=== PATIENT | female | born 1960 | race Caucasian/White ===

== ENCOUNTER → 2016-11-15 | Outpatient (CLI) | payer BC ==
--- NOTE | 2016-11-15 10:51 | REPMRS ---
Patient History The patient states she had a clinical breast exam in 11/2016. Patient is postmenopausal and has history of other cancer at age 54. Family history of breast cancer in mother at age 30. Taking estrogen for 13 years. Digital Woman Screen Mammo: November 15, 2016 - Exam #: [id number] Bilateral CC and MLO view(s) were taken. Technologist: Marian Ga, Technologist Prior study comparison: October 11, 2015, digital woman screen mammo performed at [facility]. October 07, 2014, digital woman screen mammo performed at [facility]. August 18, 2013, left breast digital mammo diagnostic unilateral, performed at [facility]. July 10, 2012, digital mammo diagnostic bilateral, performed at [facility]. FINDINGS: There are scattered fibroglandular densities. There has been no change in the appearance of the mammogram from the prior studies. There is a mild amount of scattered fibroglandular density which is fairly symmetric. There is no interval development of dominant mass, architectural distortion, or clustered microcalcification suggestive of malignancy. ASSESSMENT: BI-RADS/ACR category 1 mammogram. Negative. Recommendation Routine screening mammogram in 1 year (for women over age 40). This mammogram was interpreted with the aid of an FDA-approved computer-aided dectection system. Electronically Signed By: Daniel Chen MD 11/15/16 [id number]
== END ==
LOC: M WHC 09:37
PROVIDERS: ATTEND Nurse Practitioner Family
DX: Z12.31 Encounter for screening mammogram for malignant neoplasm of breast (principal)

== ENCOUNTER → 2017-08-16 | Outpatient (REF) | payer BC ==
[2017-08-16 12:55] LABS: EOS # 0.2 10^3/uL (0.0-0.50); EOS % 3.8 % (0.0-3.0); IMMATURE GRANULOCYTE % 0.2 % (0-0); LYMPH # 1.8 10^3/uL (1.5-4.5); LYMPH % 42.1 % (24.0-44.0); MEAN CORPUSCULAR HEMOGLOBIN 31.4 pg (27.0-33.0); MEAN CORPUSCULAR HGB CONC 32.6 g/dl (32.0-36.5); MEAN CORPUSCULAR VOLUME 96.4 fl (80.0-96.0); MONO # 0.3 10^3/uL (0.0-0.8); MONO % 6.7 % (0.0-5.0); NEUTROPHILS # 1.9 10^3/uL (1.8-7.7); NEUTROPHILS % 46.2 % (36.0-66.0); PLATELET COUNT, AUTOMATED 252 10^3/uL (150-450); RED CELL DISTRIBUTION WIDTH 11.9 % (11.5-14.5); WHITE BLOOD COUNT 4.2 10^3/uL (4.0-10.0)
[2017-08-16 13:06] LABS: ALBUMIN 3.3 GM/DL (3.2-5.2); ALBUMIN/GLOBULIN RATIO 0.92 (1.00-1.93); ALKALINE PHOSPHATASE 97 U/L (45-117); ALT/SGPT 23 U/L (12-78); ANION GAP 2 MEQ/L (8-16); AST/SGOT 14 U/L (15-37); BILIRUBIN,TOTAL 0.3 MG/DL (0.2-1.0); BLOOD UREA NITROGEN 16 MG/DL (7-18); CALCIUM LEVEL 8.3 MG/DL (8.5-10.1); CARBON DIOXIDE LEVEL 33 MEQ/L (21-32); CHLORIDE LEVEL 103 MEQ/L (98-107); CHOLESTEROL LEVEL 231 MG/DL (<200); CREATININE FOR GFR 0.78 MG/DL (0.55-1.02); GLOMERULAR FILTRATION RATE > 60.0 (>51); GLUCOSE, FASTING 81 MG/DL (70-105); POTASSIUM SERUM 3.9 MEQ/L (3.5-5.1); SODIUM LEVEL 138 MEQ/L (136-145); TOTAL PROTEIN 6.9 GM/DL (6.4-8.2); TRIGLYCERIDES LEVEL 162 MG/DL (<150)
== END ==
LOC: M LABDRAW1 10:04
PROVIDERS: ATTEND Emergency Medicine
DX: R03.0 Elevated blood-pressure reading, without diagnosis of hypertension (principal)

== ENCOUNTER → 2018-03-03 | Outpatient (CLI) | payer BC | LOC: M WHC 13:54 | DX: Z12.31 Encounter for screening mammogram for malignant neoplasm of breast (principal); R92.8 Other abnormal and inconclusive findings on diagnostic imaging of breast; Z78.0 Asymptomatic menopausal state; Z80.3 Family history of malignant neoplasm of breast; Z79.890 Hormone replacement therapy | CPT/HCPCS: 77067 ==

== ENCOUNTER → 2018-04-07 | Outpatient (REF) | payer BC ==
[2018-04-07 15:16] LABS: ALBUMIN 3.4 GM/DL (3.2-5.2); ALBUMIN/GLOBULIN RATIO 1.06 (1.00-1.93); ALKALINE PHOSPHATASE 81 U/L (45-117); ALT/SGPT 24 U/L (12-78); ANION GAP 7 MEQ/L (8-16); AST/SGOT 16 U/L (7-37); BILIRUBIN,TOTAL 0.3 MG/DL (0.2-1.0); BLOOD UREA NITROGEN 16 MG/DL (7-18); CALCIUM LEVEL 8.1 MG/DL (8.5-10.1); CARBON DIOXIDE LEVEL 28 MEQ/L (21-32); CHLORIDE LEVEL 107 MEQ/L (98-107); CHOLESTEROL LEVEL 205 MG/DL (<200); CHOLESTEROL RISK RATIO 2.887 (<5); CREATININE FOR GFR 0.85 MG/DL (0.55-1.30); GLOMERULAR FILTRATION RATE > 60.0 (>51); GLUCOSE, FASTING 95 MG/DL (70-100); HDL CHOLESTEROL 71 MG/DL (>40); LDL CHOLESTEROL 116.6 MG/DL (<100); NON-HDL-C 134 MG/DL; POTASSIUM SERUM 4.1 MEQ/L (3.5-5.1); SODIUM LEVEL 142 MEQ/L (136-145); TOTAL PROTEIN 6.6 GM/DL (6.4-8.2); TRIGLYCERIDES LEVEL 87 MG/DL (<150)
== END ==
LOC: M LABDRAW1 14:20
DX: R03.0 Elevated blood-pressure reading, without diagnosis of hypertension (principal)
CPT/HCPCS: 80053

== ENCOUNTER → 2018-08-25 | Outpatient (REF) | payer BC ==
[2018-08-25 14:21] LABS: APPEARANCE, URINE CLEAR (CLEAR); BACTERIA, URINE AUTO NEGATIVE (NEGATIVE); BILIRUBIN, URINE AUTO NEGATIVE (NEGATIVE); BLOOD, URINE BLOOD 2+ (NEGATIVE); COLOR, URINE YELLOW (YELLOW); GLUCOSE, URINE (UA) AUTO NEGATIVE (NEGATIVE); KETONE, URINE AUTO NEGATIVE (NEGATIVE); LEUKOCYTE ESTERASE, URINE AUTO NEGATIVE (NEGATIVE); MUCUS, URINE SMALL (NEGATIVE); NITRITE, URINE AUTO NEGATIVE (NEGATIVE); PROTEIN, URINE AUTO NEGATIVE (NEGATIVE); RBC, URINE AUTO 0 /HPF (0-3); SPECIFIC GRAVITY URINE AUTO 1.026 (1.002-1.035); SQUAMOUS EPITHELIAL CELL UR AU 2 /HPF (0-6); UROBILINOGEN, URINE AUTO 0.2 mg/dL (0.0-2.0); WBC, URINE AUTO 0 /HPF (0-3)
== END ==
LOC: M LAB REF 13:36
DX: R10.819 Abdominal tenderness, unspecified site (principal)
CPT/HCPCS: 81001

== ENCOUNTER → 2019-02-01 | Outpatient (REF) | payer BC | LOC: M LAB REF 12:35 | PROVIDERS: ATTEND Physician Assistant | DX: J02.9 Acute pharyngitis, unspecified (principal) ==

== ENCOUNTER → 2019-04-17 | Outpatient (CLI) | payer BC ==
--- NOTE | 2019-04-17 15:34 | REPMRS ---
Patient History The patient states she had a clinical breast exam in 04/2019. Patient is postmenopausal and has history of other cancer at age 54. Family history of breast cancer at age 30 in mother. Benign US guided breast biopsy of the left breast, 2010. Taking estrogen for 15 years. Digital Woman Screen Mammo: April 17, 2019 - Exam #: [id number] Bilateral CC and MLO view(s) were taken. Technologist: Marta Marie, Technologist Prior study comparison: March 03, 2018, digital woman screen mammo performed at [facility]. November 15, 2016, digital woman screen mammo performed at [facility]. October 11, 2015, digital woman screen mammo performed at [facility]. FINDINGS: The breast tissue is heterogeneously dense. This may lower the sensitivity of mammography. There is a moderate amount of heterogeneously dense fibroglandular tissue which is fairly symmetric. There is no interval development of dominant mass, architectural distortion, or clustered microcalcification typical of malignancy. There has been no change in the appearance of the mammogram from the prior studies. 3-D tomosynthesis shows no additional findings. Assessment: BI-RADS/ACR category 1 mammogram. Negative Mammogram. Recommendation Routine screening mammogram of both breasts in 1 year (for women over age 40). This patient's Lifetime Breast Cancer RIsk is estimated at 12.5 %. This mammogram was interpreted with the aid of an FDA-approved computer-aided dectection system. Electronically Signed By: Daniel Chen MD 04/17/19 2003
== END ==
LOC: M WHC 14:27
PROVIDERS: ATTEND Family Medicine
DX: Z12.31 Encounter for screening mammogram for malignant neoplasm of breast (principal); Z80.3 Family history of malignant neoplasm of breast; Z85.9 Personal history of malignant neoplasm, unspecified

== ENCOUNTER → 2019-07-29 | Outpatient (CLI) | payer BC ==
--- NOTE | 2019-07-30 21:02 | ECGEPIP ---
[facility] Test Date: 2019-07-29 Pat Name: KOTA PATEL Department: Room: - Gender: Female Passenger Service Manager: MADDISON : 1960 Requested By: YUDELKA Rhodes Order Number: [id number] Reading MD: Trevor Werner Measurements Intervals [place] Rate: 49 P: 71 ID: [id number] QRS: -5 QRSD: 79 T: 45 QT: 422 QTc: 383 Interpretive Statements Sinus bradycardia Low QRS complex voltage in the limb leads Delayed anterior R wave progression Comparison tracing not on file Electronically Signed on 07-30-2019 21:01:34 EDT by Trevor Werner
== END ==
LOC: M EKG 08:23
PROVIDERS: ATTEND Orthopaedic Surgery
DX: Z01.810 Encounter for preprocedural cardiovascular examination (principal)

== ENCOUNTER → 2019-12-18 | Outpatient (CLI) | payer BC ==
--- NOTE | 2019-12-18 10:02 | ECGEPIP ---
[facility] Test Date: 2019-12-18 Pat Name: KOTA PATEL Department: Room: - Gender: Female Order Processing Manager: MADDY : 1960 Requested By: YUDELKA Rhodes Order Number: [id number] Reading MD: Carolina Queen Measurements Intervals [place] Rate: 53 P: 5 MO: 162 QRS: -2 QRSD: 85 T: 48 QT: 438 QTc: 412 Interpretive Statements SINUS BRADYCARDIA PRWP IMPROVED LIMB VOLTAGE C/W 07/29/19 Electronically Signed on 12-18-2019 10:02:09 EST by Carolina Queen
== END ==
LOC: M EKG 09:19
PROVIDERS: ATTEND Orthopaedic Surgery
DX: Z01.810 Encounter for preprocedural cardiovascular examination (principal); S46.011D Strain of muscle(s) and tendon(s) of the rotator cuff of right shoulder, subsequent encounter; X58.XXXD Exposure to other specified factors, subsequent encounter

== ENCOUNTER 2020-02-25 10:25 | Day surgery (SDC) | payer BC ==
[~2020-02-25] VITALS: Ht 157.5 cm; Wt 64.9 kg
[2020-02-25] MEDS: LR 1,000 ML IV ONE ×2 (06:30→11:10)
[~2020-02-25 10:25] MED LIST: ESTR1TAB PO; HYDR-4517 PO; LIDOCAINE 1% MDV 20ML VIAL SQ PRN; ceFAZolin SOD 2 GM in IV 1 EA IV ONE; fentaNYL 100 MCG/2 ML INJECTION (J3010) IV SCH
[2020-02-25] MEDS ORDERED: LIDOCAINE 1% MDV 20ML VIAL ONE (10:26)
[2020-02-25] MEDS ORDERED: EPINEPHrine INJ 1 MG/ML 1ML AMP ONE (10:26)
[2020-02-25] MEDS ORDERED: ROPIvacaine 0.5% 30ML INJECTION (J2795 PER 1MG) ONE (10:26)
[2020-02-25] MEDS ORDERED: MIDAZOLAM INJ 2MG/2ML VIAL (J2250 PER 1MG) As Ordered ONE ×2 (12:17→14:26)
[2020-02-25] MEDS ORDERED: fentaNYL 100 MCG/2 ML INJECTION (J3010) As Ordered ONE ×2 (12:17→14:26)
[2020-02-25] MEDS ORDERED: SCOPOLAMINE 1MG TRANSDERMAL PATCH As Ordered ONE (12:23)
[2020-02-25] MEDS ORDERED: SCOPOLAMINE 1MG TRANSDERMAL PATCH TOP ONE (12:30)
[2020-02-25] MEDS: MIDAZOLAM INJ 2MG/2ML VIAL (J2250 PER 1MG) IV SCH ×4 (12:36→14:28)
[2020-02-25] MEDS ORDERED: EPINEPHrine 1MG/ML INJ 30ML MD-VIAL As Ordered ONE (12:52)
[2020-02-25] MEDS ORDERED: ONDANSETRON 4MG/2ML VIAL As Ordered ONE (14:26)
[2020-02-25] MEDS ORDERED: ROCURONIUM BROMIDE 50 MG/5 ML VIAL As Ordered ONE (14:26)
[2020-02-25] MEDS ORDERED: LIDOCAINE 2% 100MG/5ML SDV (FOR ANES.) As Ordered ONE (14:26)
[2020-02-25] MEDS ORDERED: dexameTHASONE 4 MG/ML 1ML VIAL (J1100 PER 1MG) As Ordered ONE (14:26)
[2020-02-25] MEDS ORDERED: propofoL 200 MG/20 ML VIAL As Ordered ONE (14:26)
[2020-02-25] MEDS ORDERED: LIDOCAINE 1% SDV 30ML VIAL As Ordered ONE (14:33)
[2020-02-25] MEDS ORDERED: GLYCOPYRROLATE INJ 0.2 MG/ML 2 ML VIAL As Ordered ONE (16:25)
[2020-02-25] MEDS ORDERED: ePHEDrine SULFATE 25 MG/5 ML(5MG/ML) SYRINGE As Ordered ONE (16:25)
[2020-02-25] MEDS ORDERED: SUGAMMADEX SODIUM 500 MG/5 ML VIAL (BRIDION) As Ordered ONE (16:51)
[2020-02-25] MEDS ORDERED: METOCLOPRAMIDE INJ 10MG/2ML VIAL (J2765 PER 1) IV PRN (17:45)
[2020-02-25] MEDS ORDERED: LR 1,000 ML IV SCH ×2 (17:45)
[2020-02-25] MEDS ORDERED: fentaNYL 100 MCG/2 ML INJECTION (J3010) IV PRN (17:45)
[2020-02-25] MEDS ORDERED: ONDANSETRON 4MG/2ML VIAL IV PRN (17:45)
[2020-02-25] MEDS ORDERED: PERCOCET 5MG/325MG TAB PO PRN (17:45)
[2020-02-25 19:10] VITALS: BP 134/83
--- NOTE | 2020-02-26 00:32 | RO ---
DATE OF PROCEDURE: 02/25/2020 PREOPERATIVE DIAGNOSES: 1. Right shoulder rotator cuff re-tear. 2. Right shoulder synovitis. POSTOPERATIVE DIAGNOSES: 1. Right shoulder rotator cuff re-tear. 2. Right shoulder superior labral tear. 3. Right shoulder synovitis. PROCEDURE: 1. Right shoulder arthroscopic revision rotator cuff repair. 2. Right shoulder arthroscopic synovectomy and superior labral debridement. 3. Right shoulder hardware removal. SURGEON: Dr. German Bailey BEVELER: CHICHO De La Rosa ANESTHESIA: General plus preoperative nerve block. INTRAVENOUS (IV) FLUIDS: Lactated Ringer's. ESTIMATED BLOOD LOSS: 10 mL. IMPLANTS: Arthrex 5.5 mm PEEK SwiveLock anchor times four. CLOSURE: Nylon. DESCRIPTION OF PROCEDURE: Patient was identified in the preoperative holding area. The right shoulder was marked. She received an interscalene nerve block. She was brought to the operating room, placed supine on well-padded operating room (OR) table. General anesthesia induced. She received appropriate IV antibiotics within 1 hour of incision. She had 170 degrees of passive forward flexion, 80 of external rotation with her arm at her side and at 90 degrees of abduction. No increased anterior-posterior translation. Patient was then placed into the left side down lateral decubitus position, and an axillary roll was placed. She had bilateral Venodyne boots for deep venous thrombosis (DVT) prophylaxis. She was secured the OR table with a beanbag. The right arm was placed into the Arthrex STaR Sleeve lateral decubitus traction freitas, 10 pounds of traction. The right shoulder was then prepped and draped in the normal sterile fashion with Chloraprep. Prior to incision, a time-out was performed per hospital protocol. Med Kennedy was present for the entire procedure and participated in all essential portions of the procedure. This included patient positioning, draping, holding the arthroscope, providing traction and rotation of the arm to assist with anchor placement and suture removal. He was crucial for placing anchors, both using the mallet and awl, and performed the wound closure and applied the dressing and sling. The right shoulder was insufflated lactated Ringer's. A standard posterior viewing portal made with a #11 blade. A 30-degree arthroscope was introduced into the joint. A diagnostic arthroscopy revealed grade 1 chondromalacia in glenohumeral joint. No significant arthritis. Anterior, posterior, and inferior labrum were intact. There is degenerative free edge superior labral tearing. Subscapularis repair was intact. There was a high-grade partial articular re-tear of the supraspinatus repair that some sutures were visualized under poor tension. An anterior working portal was established through the rotator interval, and the shaver was used to perform a synovectomy and a debridement of the superior labral tear. The rotator cable was displaced medially. The arthroscope was withdrawn from the joint, placed in the subacromial space. A lateral working portal was established. A shaver and radiofrequency cautery used to clear out scar tissue from the subacromial space. Sutures from the initial rotator cuff repair were visualized, and several were noted to be under poor tension. A switching stick was used to retrieve some of those sutures to lift them off the tendon, and they were found to be lax. There was no full-thickness re-tear. This was essentially an in situ high-grade partial articular re-tear. The open suture cutter was then used to release visible sutures, and then I completed the tear far lateral at the tuberosity using the radiofrequency cautery and a switching stick. Recreated a full-thickness tear. I removed the vast majority of suture from the initial repair. The two lateral knotless anchors were left in place. A ring curette was then used to clear soft tissue off the tuberosity. I then percutaneously placed two 5.5 mm PEEK SwiveLock anchors. Both of these were just anterior to the initial medial row, which was an all-suture medial row. So for the anterior anchor, the eyelet stitches were passed through the far anterior portion and then the tapes were passed anterior central. The eyelet stitches were tied with a knot pusher using alternating half hitch technique. The very far anterior portion of the supraspinatus was somewhat lax and, therefore, I passed a FiberLink through that to set the anterior edge. For the posterior anchor, I passed the eyelet stitches through the posterior central portion of the tear and then the tape sutures far posterior. Eyelet stitches were tied with a knot pusher. Next, corresponding medial row sutures were brought out through an anterior lateral portal, loaded through a 5.5 SwiveLock anchor. Took great care to avoid the initial lateral row as well, which added complexity to the case. The punch was used to create a socket in the tuberosity. [place] was docked, sutures tensioned, and anchor inserted by hand with excellent fixation. Sutures cut with a fish cutter. Remaining sutures were brought out through the posterior lateral cannula, again loaded through a 5.5 mm SwiveLock anchor. Same steps repeated. That anchor also had great fixation. This completed the double row fixation. There were no dog ears. The entire tuberosity was covered with tendon. Gently internally and externally rotated the shoulder. There was no lift off or buckling. Shoulder was irrigated and drained. Portals closed with nylon suture. Bulky sterile dressing applied. At the time of this dictation, Med is applying the sling and then she will be extubated and sent to the postanesthesia care unit (PACU). DISPOSITION: I had a very long conversation with the patient about being careful postoperatively to avoid a re-tear. She expresses full understanding of those instructions.
== END 2020-02-25 19:26 | disposition home or self-care (01) ==
LOC: M SDC 10:25
PROVIDERS: ATTEND Orthopaedic Surgery
DX: S46.011A Strain of muscle(s) and tendon(s) of the rotator cuff of right shoulder, initial encounter (principal); S43.431A Superior glenoid labrum lesion of right shoulder, initial encounter; M65.811 Other synovitis and tenosynovitis, right shoulder; M94.211 Chondromalacia, right shoulder; X58.XXXA Exposure to other specified factors, initial encounter; Y92.89 Other specified places as the place of occurrence of the external cause; G43.909 Migraine, unspecified, not intractable, without status migrainosus; Z86.718 Personal history of other venous thrombosis and embolism; Z86.19 Personal history of other infectious and parasitic diseases; Z79.891 Long term (current) use of opiate analgesic; Z79.890 Hormone replacement therapy
CPT/HCPCS: 29820; 29827; 64415; C1713; J0171; J0690; J1100; J2250; J2405; J2795; J3010

== ENCOUNTER → 2020-03-16 | Outpatient (REF) | payer BC ==
[~2020-03-16] MED LIST changes: -LIDOCAINE 1% MDV 20ML VIAL SQ PRN; -ceFAZolin SOD 2 GM in IV 1 EA IV ONE; -fentaNYL 100 MCG/2 ML INJECTION (J3010) IV SCH
[2020-03-16 18:10] LABS: BASO % 0.9 % (0.0-1.0); EOS # 0.1 10^3/uL (0.0-0.5); EOS % 3.1 % (0.0-3.0); HEMATOCRIT 34.6 % (36.0-47.0); HEMOGLOBIN 11.1 g/dl (12.0-15.5); LYMPH # 1.5 10^3/uL (1.5-5.0); LYMPH % 41.7 % (24.0-44.0); MEAN CORPUSCULAR HEMOGLOBIN 31.5 pg (27.0-33.0); MEAN CORPUSCULAR HGB CONC 32.1 g/dl (32.0-36.5); MEAN CORPUSCULAR VOLUME 98.3 fl (80.0-96.0); MONO # 0.3 10^3/uL (0.0-0.8); MONO % 7.1 % (0.0-5.0); NEUTROPHILS # 1.6 10^3/uL (1.5-8.5); NEUTROPHILS % 46.9 % (36.0-66.0); PLATELET COUNT, AUTOMATED 263 10^3/uL (150-450); RED BLOOD COUNT 3.52 10^6/uL (4.00-5.40); WHITE BLOOD COUNT 3.5 10^3/uL (4.0-10.0)
[2020-03-16 18:23] LABS: ALBUMIN 3.3 GM/DL (3.2-5.2); ALT/SGPT 29 U/L (12-78); BILIRUBIN,TOTAL 0.3 MG/DL (0.2-1.0); BLOOD UREA NITROGEN 21 MG/DL (7-18); CALCIUM LEVEL 8.5 MG/DL (8.5-10.1); CARBON DIOXIDE LEVEL 29 MEQ/L (21-32); CHLORIDE LEVEL 105 MEQ/L (98-107); CHOLESTEROL LEVEL 202 MG/DL (<200); CHOLESTEROL RISK RATIO 2.463 (<5); FREE T4 0.92 NG/DL (0.76-1.46); GLOMERULAR FILTRATION RATE > 60.0 (>51); GLUCOSE, FASTING 86 MG/DL (70-100); HDL CHOLESTEROL 82 MG/DL (>40); LDL CHOLESTEROL 100 MG/DL (<100); NON-HDL-C 120 MG/DL; POTASSIUM SERUM 4.4 MEQ/L (3.5-5.1); SODIUM LEVEL 140 MEQ/L (136-145); TOTAL PROTEIN 6.6 GM/DL (6.4-8.2); TRIGLYCERIDES LEVEL 98 MG/DL (<150)
[2020-03-16 18:27] LABS: TOTAL 25(OH) VITAMIN D 18.3 NG/ML (30.0-100.0)
== END ==
LOC: M LAB REF 16:27
PROVIDERS: ATTEND Physician Assistant
DX: E78.2 Mixed hyperlipidemia (principal); I10 Essential (primary) hypertension; M54.2 Cervicalgia; G43.909 Migraine, unspecified, not intractable, without status migrainosus; Z90.711 Acquired absence of uterus with remaining cervical stump; B02.29 Other postherpetic nervous system involvement

== ENCOUNTER → 2020-04-19 | Outpatient (REF) | payer BC ==
[~2020-04-19] MED LIST changes: +CIPR500T3; +METH-1164 PO
[2020-04-19 19:32] LABS: BASO % 0.4 % (0.0-1.0); EOS # 0.2 10^3/uL (0.0-0.5); EOS % 3.6 % (0.0-3.0); HEMATOCRIT 34.9 % (36.0-47.0); HEMOGLOBIN 11.1 g/dl (12.0-15.5); LYMPH # 1.7 10^3/uL (1.5-5.0); MEAN CORPUSCULAR HEMOGLOBIN 31.5 pg (27.0-33.0); MEAN CORPUSCULAR HGB CONC 31.8 g/dl (32.0-36.5); MEAN CORPUSCULAR VOLUME 99.1 fl (80.0-96.0); MONO # 0.4 10^3/uL (0.0-0.8); MONO % 7.9 % (0.0-5.0); NEUTROPHILS # 2.4 10^3/uL (1.5-8.5); NEUTROPHILS % 50.7 % (36.0-66.0); PLATELET COUNT, AUTOMATED 235 10^3/uL (150-450); RED BLOOD COUNT 3.52 10^6/uL (4.00-5.40); WHITE BLOOD COUNT 4.7 10^3/uL (4.0-10.0)
== END ==
LOC: M LAB REF 18:21
PROVIDERS: ATTEND Family Medicine Addiction Medicine
DX: D61.818 Other pancytopenia (principal)

== ENCOUNTER 2020-05-19 16:26 | Emergency (ER) | payer BC ==
[~2020-05-19] VITALS: Ht 157.5 cm; Wt 64.9 kg
[~2020-05-19 16:26] MED LIST changes: -CIPR500T3; -METH-1164 PO
[2020-05-19] MEDS ORDERED: CIPR500T3 (16:35)
[2020-05-19 17:12] LABS: BASO % 0.6 % (0.0-1.0); EOS # 0.1 10^3/uL (0.0-0.5); EOS % 2.5 % (0.0-3.0); HEMATOCRIT 37.6 % (36.0-47.0); HEMOGLOBIN 11.9 g/dl (12.0-15.5); LYMPH # 1.7 10^3/uL (1.5-5.0); LYMPH % 34.6 % (24.0-44.0); MEAN CORPUSCULAR HGB CONC 31.6 g/dl (32.0-36.5); MEAN CORPUSCULAR VOLUME 97.9 fl (80.0-96.0); MONO # 0.4 10^3/uL (0.0-0.8); MONO % 8.1 % (0.0-5.0); NEUTROPHILS # 2.6 10^3/uL (1.5-8.5); PLATELET COUNT, AUTOMATED 239 10^3/uL (150-450); RED BLOOD COUNT 3.84 10^6/uL (4.00-5.40); WHITE BLOOD COUNT 4.8 10^3/uL (4.0-10.0)
[2020-05-19] MEDS ORDERED: KETOROLAC 30 MG/ML 1ML VIAL IV ONE (17:30)
[2020-05-19 17:37] LABS: ALBUMIN 3.7 GM/DL (3.2-5.2); BILIRUBIN,DIRECT 0.1 MG/DL (0.0-0.2); BILIRUBIN,TOTAL 0.5 MG/DL (0.2-1.0); TOTAL PROTEIN 7.2 GM/DL (6.4-8.2)
--- NOTE | 2020-05-19 18:47 | REPVR ---
PROCEDURE INFORMATION: Exam: CT Abdomen And Pelvis Without Contrast Exam date and time: 05/19/2020 5:32 PM Age: 59 years old Clinical indication: Abdominal pain; Additional info: L flank pain, abx not helping, hematuria TECHNIQUE: Imaging protocol: Computed tomography of the abdomen and pelvis without contrast. Radiation optimization: All CT scans at this facility use at least one of these dose optimization techniques: automated exposure control; mA and/or kV adjustment per patient size (includes targeted exams where dose is matched to clinical indication); or iterative reconstruction. COMPARISON: No relevant prior studies available. FINDINGS: Lungs: Clear appearing lung bases. Liver: There is a small low-density lesion of the right and left lobe of the liver and I would recommend a CT scan with contrast to further evaluate these lesions. The patient is status post cholecystectomy with surgical clips at the gallbladder fossa. Pancreas: There is a large area of low density throughout the head of the pancreas probably fatty infiltration of the head of the pancreas. Pancreatic duct is not enlarged. A CT scan with IV contrast of the abdomen for evaluation of the pancreas would also be very helpful. If there are old that can be obtained for comparison it would be very important Spleen: Normal spleen. Adrenals: Normal. No mass. Kidneys and ureters: There is a punctate calcified stone lower pole of the right kidney/nonobstructive. There is no evidence of hydronephrosis or obstruction of the right or left ureter. There are multiple calcifications near the course of the right and left ureter but thought to be extrinsic, the contrast study would be very important to evaluate the ureters as well. Stomach and bowel: There are several small diverticula of the left colon but no evidence of diverticulitis Appendix: Normal appearing appendix in the right pelvis. Intraperitoneal space: There is no evidence of pneumoperitoneum. Vasculature: Unremarkable. No abdominal aortic aneurysm. Lymph nodes: There is no evidence of lymphadenopathy. Bladder: Normal appearing urinary bladder. Reproductive: Unremarkable as visualized. Bones/joints: There is a moderate posterior disc protrusion L5-S1 causing moderate impression on the thecal sac. Soft tissues: Unremarkable. IMPRESSION: 1. Punctate nonobstructive stone right kidney. 2. 2 small lesions of the liver and marked fatty replacement at the head of the pancreas. There is also calcification along the course of both ureters but thought to be extrinsic to the ureters. Because of these findings it would be very important to have a CT scan abdomen and pelvis with IV contrast to include the liver and thin sections of the pancreas. Electronically signed by: Gino Jacobsen On 05/19/2020 18:47:30 PM
[2020-05-19] MEDS ORDERED: METH1TAB40 PO (19:06)
[2020-05-19 19:19] VITALS: BP 125/89
== END 2020-05-19 20:11 | disposition home or self-care (01) ==
LOC: M ED 16:26
DX: R31.9 Hematuria, unspecified (principal); R10.9 Unspecified abdominal pain; Z90.49 Acquired absence of other specified parts of digestive tract; Z98.890 Other specified postprocedural states
CPT/HCPCS: 36415; 74176; 80047; 80076; 81001; 83690; 85025; 96374; 99284; J1885

== ENCOUNTER → 2020-07-13 | Outpatient (CLI) | payer BC ==
[~2020-07-13] MED LIST changes: +CIPR500T3; +METH1TAB40 PO
--- NOTE | 2020-07-13 15:57 | REPMRS ---
Patient History The patient states she had a clinical breast exam in 2019. Family history of breast cancer at age 30 in mother. Benign US guided breast biopsy of the left breast, 2010. Taking estrogen for 15 years. 3D TOMOSYNTHESIS WAS PERFORMED. [facility] VOLPARA DENSITY B. Digital Woman Screen Mammo: July 13, 2020 - Exam #: [id number] Bilateral CC and MLO view(s) were taken. Technologist: Cristel Bowens, Technologist Prior study comparison: April 17, 2019, bilateral digital woman screen mammo performed at [facility]. March 03, 2018, digital woman screen mammo performed at [facility]. FINDINGS: The breast tissue is heterogeneously dense. This may lower the sensitivity of mammography. There has been no change in the appearance of the mammogram from the prior studies. There is a moderate amount of residual fibroglandular tissue which is fairly symmetric. There is no interval development of dominant mass, areas of architectural distortion, or clustered microcalcification typical of malignancy. Assessment: BI-RADS/ACR category 1 mammogram. Negative Mammogram. Recommendation Routine screening mammogram in 1 year (for women over age 40). This mammogram was interpreted with the aid of an FDA-approved computer-aided dectection system. Electronically Signed By: Kofi Rivers MD 07/13/20 [id number]
== END ==
LOC: M WHC 15:06
PROVIDERS: ATTEND Registered Nurse
DX: Z12.31 Encounter for screening mammogram for malignant neoplasm of breast (principal); Z86.018 Personal history of other benign neoplasm; Z79.899 Other long term (current) drug therapy; Z80.3 Family history of malignant neoplasm of breast

== ENCOUNTER → 2021-02-21 | Outpatient (CLI) | payer BC ==
[~2021-02-21] MED LIST changes: +ISOVUE-300 61% 50ML VIAL As Ordered ONE; +METH-1164 PO; -METH1TAB40 PO; +PROHANCE 279.3MG/ML 5ML VIAL As Ordered ONE
--- NOTE | 2021-02-21 15:23 | REP ---
INDICATION: PERSISTENT RT SHOULDER PAIN. Patient reports 3 prior surgical procedures right shoulder. Pain and limited range of motion. COMPARISON: Comparison right shoulder MR study July 29, 2020.. TECHNIQUE: The injection procedure is performed and dictated separately. Pre and post intra-articular gadolinium enhanced saline injected imaging is acquired. Imaging planes include axial, oblique coronal, oblique sagittal and ABER projection images. T1 and T2-weighted scans are included with and without fat saturation. FINDINGS: There are multiple orthopedic fixation pin tracks in the humeral head as noted previously. The glenohumeral and acromioclavicular joints are normally aligned. There is another pin tract fixation device in the proximal humeral diaphysis consistent with a biceps tendon transfer. Cortical and medullary bone signal intensity are otherwise normal. There is a subacromial subdeltoid bursal effusion on pre-injection imaging today. There is extensive swelling and increased signal intensity in the distal supraspinatus tendon on today's study similar to the prior exam. Heterogeneous diffuse increased signal is seen on oblique coronal T2 weighted scans consistent with partial-thickness cuff lesion. No full-thickness or retracted tear is observed. No a superior labral tear is seen. Post injection in a imaging shows good filling and enhancement of the right glenohumeral articulation. No anterior or posterior labral tear is appreciated. No loose body is seen. Post injection T1 weighted fat sat images show extensive gadolinium enhancement within the substance of the swollen supraspinatus tendon consistent with synovial surface partial-thickness supraspinatus tendon lesions.. IMPRESSION: Postoperative changes as above. Extensive tendinosis throughout the swollen supraspinatus tendon similar to the prior study. Intrasubstance synovial surface partial-thickness cuff lesions seen on post injected MR imaging. No full-thickness or retracted cuff tear seen. The infraspinatus and subscapularis tendons appear intact. No labral tear is seen. <Electronically signed by Daniel Chen > 02/21/21 [id number]
--- NOTE | 2021-02-21 16:41 | REP ---
INDICATION: PERSISTENT RT SHOULDER PAIN COMPARISON: None. TECHNIQUE: The procedure was performed under the direct supervision of Dr. Chen. The benefits and risks including but not limited to pain, infection, bleeding and anaphylaxis were explained to the patient and informed consent was obtained. The right glenohumeral joint space was localized using fluoroscopic guidance. The skin was prepped and draped in a sterile fashion. 1% lidocaine was used as a local anesthetic. Using fluoroscopic guidance a 22 gauge spinal needle was inserted and advanced into the joint. 0.5 ml of Isovue-300 was injected to verify placement. 11 ml of a solution containing 20 ml of sterile saline and 0.15 ml of ProHance was injected into the joint. The needle was removed and the patient was taken to MRI for postprocedural imaging. The patient tolerated the procedure well and there were no immediate complications. Less than 6 seconds of fluoro time was utilized for this procedure. FINDINGS: None IMPRESSION: Fluoro guidance for right shoulder MRI arthrogram injection. <Electronically signed by John Grace > 02/21/21 [id number] <Electronically signed by Daniel Chen > 02/21/21 [id number]
== END ==
LOC: M RADPRO 12:49
PROVIDERS: ATTEND Nurse Practitioner Adult Health
DX: M25.511 Pain in right shoulder (principal); Z96.7 Presence of other bone and tendon implants
CPT/HCPCS: 23350; 73223; 77002; A9576; Q9967

== ENCOUNTER → 2021-07-18 | Outpatient (CLI) | payer BC ==
[~2021-07-18] MED LIST changes: -ISOVUE-300 61% 50ML VIAL As Ordered ONE; -PROHANCE 279.3MG/ML 5ML VIAL As Ordered ONE
== END ==
LOC: M WHC 15:53
PROVIDERS: ATTEND Nurse Practitioner Women's Health
DX: Z12.31 Encounter for screening mammogram for malignant neoplasm of breast (principal)

== ENCOUNTER → 2021-08-21 | Outpatient (CLI) | payer BC ==
--- NOTE | 2021-08-21 16:18 | REPMRS ---
Patient History The patient states she had a clinical breast exam in July 2021. Patient is postmenopausal and has history of other cancer at age 54. Family history of breast cancer at age 30 in mother. Benign US guided breast biopsy of the left breast, 2010. Taking estrogen for 16 years. Patient states no breast complaints today. Patient has signed MRS History Sheet. Digital Woman Screen Mammo: August 21, 2021 - Exam #: [id number] Bilateral CC and MLO view(s) were taken. Technologist: Marta Marie, Technologist Prior study comparison: July 13, 2020, bilateral digital woman screen mammo performed at [facility]. April 17, 2019, bilateral digital woman screen mammo performed at [facility]. FINDINGS: There are scattered fibroglandular densities. Screening. Digital screening (2D) mammography was performed bilaterally in the CC and MLO projections. Additionally, breast tomosynthesis (3D mammography) was performed bilaterally in the CC and MLO projections. Todays exam was compared to the prior exam/exams. By history, the patient has no complaints of a palpable breast abnormality or other significant breast complaints. The breasts are unchanged in size and shape. There are no andrew-soft tissue densities or spiculated masses. There is no internal architectural distortion. There are no suspicious andrew-calcific clusters. Skin thickening or nipple retraction is not present. IMPRESSION: BI-RADS Category 2- Benign Findings. There is no evidence of malignant alteration of the breasts. Followup examination recommended in one year. The Volpara volumetric breast density category is B, there are scattered areas of fibroglandular densities. This mammogram was read with the assistance of [facility] [employer],an FDA approved computer aided detection system for mammography. The lifetime Tyrer-Cuzick score is 11,9 % Negative x-ray reports should not delay surgical consultation if a dominant or clinically suspicious mass is present. Not all breast cancers can be identified by mammography. Therefore, we recommend that you continue to perform regular breast self-examination and physical examination and then promptly contact your physician of any concerns or changes. Adenosis and dense breasts may obscure an underlying neoplasm. Assessment: BI-RADS/ACR category 2 mammogram. Benign Findings. Recommendation Routine screening mammogram of both breasts in 1 year. Electronically Signed By: Pérez Tse DO 08/21/21 0689
== END ==
LOC: M WHC 15:42
PROVIDERS: ATTEND Nurse Practitioner Women's Health
DX: Z12.31 Encounter for screening mammogram for malignant neoplasm of breast (principal); Z78.0 Asymptomatic menopausal state; Z85.89 Personal history of malignant neoplasm of other organs and systems

== ENCOUNTER → 2022-07-02 | Outpatient (CLI) | payer BC | LOC: M RAD 12:22 | DX: M99.03 Segmental and somatic dysfunction of lumbar region (principal); M54.51 Vertebrogenic low back pain; M99.83 Other biomechanical lesions of lumbar region; M99.06 Segmental and somatic dysfunction of lower extremity; M99.86 Other biomechanical lesions of lower extremity; M25.551 Pain in right hip ==

== ENCOUNTER → 2022-09-13 | Outpatient (CLI) | payer OTHER | LOC: M WHC 09:59 | PROVIDERS: ATTEND Nurse Practitioner Adult Health | DX: Z12.31 Encounter for screening mammogram for malignant neoplasm of breast (principal) ==

== ENCOUNTER → 2022-11-08 | Outpatient (CLI) | payer OTHER | LOC: M PLAIMG 10:30 | PROVIDERS: ATTEND Orthopaedic Surgery | DX: M51.36 Other intervertebral disc degeneration, lumbar region (principal); M51.37 Other intervertebral disc degeneration, lumbosacral region; M48.061 Spinal stenosis, lumbar region without neurogenic claudication; M41.9 Scoliosis, unspecified ==

== ENCOUNTER → 2023-09-16 | Outpatient (CLI) | payer OTHER | LOC: M WHC 09:10 | PROVIDERS: ATTEND Nurse Practitioner Adult Health | DX: Z12.31 Encounter for screening mammogram for malignant neoplasm of breast (principal); R92.323 Mammographic fibroglandular density, bilateral breasts; Z80.3 Family history of malignant neoplasm of breast ==

== ENCOUNTER → 2024-01-14 | Outpatient (CLI) | payer OTHER | LOC: M WHC 08:39 | PROVIDERS: ATTEND Nurse Practitioner Adult Health | DX: N63.23 Unspecified lump in the left breast, lower outer quadrant (principal) | CPT/HCPCS: 76642; 77065; G0279 ==

== ENCOUNTER → 2024-10-07 | Outpatient (CLI) | payer OTHER | LOC: M SOG 07:54 | PROVIDERS: ATTEND Physician Assistant | DX: M25.531 Pain in right wrist (principal) ==

== ENCOUNTER → 2024-11-11 | Outpatient (CLI) | payer OTHER | LOC: M SOG 07:54 | PROVIDERS: ATTEND Physician Assistant | DX: Z53.9 Procedure and treatment not carried out, unspecified reason (principal) ==

== ENCOUNTER 2025-06-19 12:41 | Emergency (ER) | payer BC, OTHER ==
[~2025-06-19] VITALS: Ht 157.5 cm; Wt 68.3 kg
[2025-06-19 15:27] VITALS: BP 153/78; TEMP 97.2; O2SAT 98
== END 2025-06-19 15:37 | disposition home or self-care (01) ==
LOC: M ED 12:41
DX: S63.653A Sprain of metacarpophalangeal joint of left middle finger, initial encounter (principal); X58.XXXA Exposure to other specified factors, initial encounter; Y92.009 Unspecified place in unspecified non-institutional (private) residence as the place of occurrence of the external cause; Y93.89 Activity, other specified; Y99.9 Unspecified external cause status; Z79.890 Hormone replacement therapy